=== PATIENT | male | born 1950 ===

== ENCOUNTER 2017-05-06 13:19 | Inpatient (IN) | payer MEDICARE ==
[2017-05-06 13:20] VITALS: BMI 25.7
[2017-05-06] MEDS ORDERED: Sodium Chloride 0.9% 1,000 ML IV STA (13:30)
[2017-05-06] MEDS ORDERED: Morphine 4 mg/ml ISec IVP STA ×2 (13:30→15:26)
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
[2017-05-06] MEDS ORDERED: TDAP Vaccine 0.5 mL Syr IM ONE (13:46)
[2017-05-06 13:55] LABS: BASO # 0.02 K/mm3 (0.0-2.0); BASO % 0.4 % (0.0-3.0); EOS # 0.1 (0.0-0.7); EOS % 1.1 % (1.5-5.0); GRAN # 3.97 (1.4-6.5); GRAN % 69.4 % (50.0-68.0); HEMOGLOBIN 16.7 g/dL (14.0-18.0); LYMPH # 1.3 (1.2-3.4); LYMPH % 23.3 % (22.0-35.0); MEAN CELL VOLUME 96.4 fl (80.0-105.0); MEAN CORPUSCULAR HEMOGLOBIN 35.2 pg (25.0-35.0); MEAN CORPUSCULAR HGB CONC 36.5 g/dl (31.0-37.0); MEAN PLATELET VOLUME 10.3 fl (7.0-11.0); MONO # 0.3 (0.1-0.6); MONO % 5.8 % (1.0-6.0); PLATELET COUNT 141 10^3/uL (120.0-450.0); RBC 4.74 10^6/uL (3.5-6.1); RED CELL DISTRIBUTION WIDTH 13.1 % (11.5-14.5); WHITE BLOOD COUNT 5.7 10^3/ul (4.5-11.0)
[2017-05-06 14:06] LABS: INR 1.1 (0.93-1.08); PARTIAL THROMBOPLASTIN TIME 23.8 Seconds (23.7-30.8); PROTHROMBIN TIME 11.9 Seconds (9.9-11.8)
[2017-05-06 14:07] LABS: ALB/GLOB RATIO 1.7 (1.1-1.8); ALBUMIN 4.6 g/dL (3.0-4.8); ALT/SGPT 199 U/L (7-56); AST/SGOT 251 U/L (15-59); BLOOD UREA NITROGEN 18 mg/dL (7-21); CALCIUM 9.8 mg/dL (8.4-10.5); GFR AFRICAN-AMERICAN > 60; GFR NON-AFRICAN AMERICAN > 60
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
[2017-05-06] MEDS: Morphine 2 mg/ml ISec IVP PRN ×2 (18:18→23:07)
[2017-05-06] MEDS ORDERED: Potassium Chloride 20 mEq ER Tab PO ONE (19:00)
[2017-05-06] MEDS: Sodium Chloride 0.9% 1,000 ML IV SCH (20:29)
[2017-05-06 21:52] LABS: BLOOD UREA NITROGEN 16 mg/dL (7-21); CALCIUM 9.5 mg/dL (8.4-10.5); GFR AFRICAN-AMERICAN > 60; GFR NON-AFRICAN AMERICAN > 60
[2017-05-06 22:05] LABS: TROPONIN I 0.03 ng/mL
[2017-05-06] MEDS ORDERED: Pneumococcal 23-Valent Vaccine IM ONE (23:43)
[2017-05-07] LABS: URINE BILIRUBIN NEGATIVE (NEGATIVE); URINE BLOOD TRACE-INTACT (NEGATIVE); URINE GLUCOSE (UA) NEGATIVE (NEGATIVE); URINE LEUKOCYTE ESTERASE NEGATIVE Leu/uL (NEGATIVE); URINE NITRATE NEGATIVE (NEGATIVE); URINE PROTEIN TRACE mg/dL (<30 mg/dL); URINE UROBILINOGEN 0.2 E.U./dL (<1 E.U./dL)
[2017-05-07 00:18] LABS: URINE APPEARANCE CLEAR (CLEAR); URINE COLOR YELLOW (YELLOW)
[2017-05-07 00:30] LABS: URINE EPITHELIAL CELLS 0 - 2 /hpf (0-5); URINE WBC 0 - 2 /hpf (0-6)
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
[2017-05-07] MEDS: Morphine 2 mg/ml ISec IVP PRN ×4 (05:07→20:02)
[2017-05-07] MEDS: Pantoprazole 40 mg EC Tab PO SCH ×2 (05:35→16:33)
--- NOTE | 2017-05-07 08:07 | US ---
HISTORY: transaminitis COMPARISON: None. TECHNIQUE: Sonographic evaluation of the abdomen. FINDINGS: LIVER: Measures 19.6 cm. Diffusely increased echogenicity of the liver parenchyma. Consistent with fatty infiltration. No mass. Smooth contour. No biliary ductal dilatation. GALLBLADDER: Unremarkable. No gallstones. COMMON BILE DUCT: Measures 6 mm. No stones. No dilatation. PANCREAS: Unremarkable as visualized. No mass. No ductal dilatation. RIGHT KIDNEY: Measures 11.5cm. Normal echogenicity. No calculus, mass, or hydronephrosis. LEFT KIDNEY: Measures 12.1cm. Normal echogenicity. No calculus, mass, or hydronephrosis. SPLEEN: Normal in size and contour. No mass. AORTA: No aneurysmal dilatation. IVC: Unremarkable. OTHER FINDINGS: None. IMPRESSION: Mild hepatomegaly with diffuse fatty infiltration. No evidence of cholelithiasis. Otherwise unremarkable examination.
[2017-05-07 09:15] LABS: BASO # 0.01 K/mm3 (0.0-2.0); BASO % 0.2 % (0.0-3.0); EOS # 0.1 (0.0-0.7); EOS % 0.8 % (1.5-5.0); GRAN # 4.51 (1.4-6.5); HEMOGLOBIN 15.3 g/dL (14.0-18.0); LYMPH # 1.1 (1.2-3.4); LYMPH % 18.5 % (22.0-35.0); MEAN CELL VOLUME 97.5 fl (80.0-105.0); MEAN CORPUSCULAR HEMOGLOBIN 34.7 pg (25.0-35.0); MEAN CORPUSCULAR HGB CONC 35.6 g/dl (31.0-37.0); MEAN PLATELET VOLUME 10.4 fl (7.0-11.0); MONO # 0.3 (0.1-0.6); MONO % 5.5 % (1.0-6.0); PLATELET COUNT 114 10^3/uL (120.0-450.0); RBC 4.41 10^6/uL (3.5-6.1); RED CELL DISTRIBUTION WIDTH 13.2 % (11.5-14.5)
[2017-05-07] MEDS: Multivitamin Vitamin B Complex (Nephro-Vite) Tab PO SCH (09:27)
[2017-05-07] MEDS: Digoxin 250 mcg (0.25 mg) Tab PO SCH (09:34)
[2017-05-07 09:39] LABS: ALB/GLOB RATIO 1.4 (1.1-1.8); ALBUMIN 3.9 g/dL (3.0-4.8); ALT/SGPT 135 U/L (7-56); AST/SGOT 107 U/L (15-59); BLOOD UREA NITROGEN 14 mg/dL (7-21); CALCIUM 9.1 mg/dL (8.4-10.5); GFR AFRICAN-AMERICAN > 60; GFR NON-AFRICAN AMERICAN > 60; HDL CHOLESTEROL 30 mg/dL (29-60); LDL CHOLESTEROL 64 mg/dL (0-129); MAGNESIUM 1.2 mg/dL (1.7-2.2)
[2017-05-07] MEDS ORDERED: Magnesium Sulfate 2 GM in Sodium Chloride 0.9% 100 ML IVPB ONE (10:20)
[2017-05-07 10:52] LABS: TROPONIN I 0.03 ng/mL
--- NOTE | 2017-05-07 11:37 | CARD ---
APPROVED REPORT EKG Measurement Heart [id number] <Conclusion> Atrial fibrillation with slow ventricular response with a competing junctional pacemaker Minimal voltage criteria for LVH, may be normal variant Inferior infarct, possibly Old Poor R Progression V1-V4. ST_T Changes.
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
[2017-05-07 13:19] LABS: BARBITURATES, UR NEGATIVE (NEGATIVE); BENZODIAZEPINES, UR NEGATIVE (NEGATIVE); OPIATES, UR POSITIVE (NEGATIVE); PHENCYCLIDINE, UR NEGATIVE (NEGATIVE)
[2017-05-07 14:47] LABS: BLOOD UREA NITROGEN 14 mg/dL (7-21); CALCIUM 8.9 mg/dL (8.4-10.5); GFR AFRICAN-AMERICAN > 60; GFR NON-AFRICAN AMERICAN > 60
[2017-05-07] MEDS ORDERED: Potassium Chloride 20 mEq ER Tab PO ONE ×2 (15:05→18:00)
[2017-05-07 15:18] LABS: TROPONIN I 0.02 ng/mL
[2017-05-07 16:10] VITALS: RESP 20
--- NOTE | 2017-05-07 17:23 | CARD ---
APPROVED REPORT EXAM: Two-dimensional and M-mode echocardiogram with Doppler and color Doppler. INDICATION Cardiac Disease: CAD 2D DIMENSIONS Left Atrium (2D)4.6 (1.6-4.0cm)IVSd1.5 (0.7-1.1cm) LVDd5.9 (3.9-5.9cm)PWd1.0 (0.7-1.1cm) LVDs5.1 (2.5-4.0cm)FS (%) 13.5 % LVEF (%)28.2 (>50%) M-Mode DIMENSIONS Aortic Root4.00 (2.2-3.7cm)Aortic Cusp Exc.1.80 (1.5-2.0cm) Aortic Valve AoV Peak Kimaemsj953.0cm/Christina Peak GR.9mmHgAI P 1/2 [id number] Mitral Valve E/A ratio0.0 TDI E/Lateral E'0.0E/Medial E'0.0 Tricuspid Valve TR Peak [id number] [id number] Peak Gr.15mmHg [id number] LEFT VENTRICLE The Left Ventricle is mildly dilated. There is mild concentric left ventricular hypertrophy. The systolic function is moderately impaired.EF-30% There is moderate to severe hypokinesis in the mid-inferoseptal wall. Transmitral Doppler flow pattern is Grade II-pseudonormal filling dynamics. No left ventricle thrombus noted on this study. There is no ventricular septal defect visualized. There is no left ventricular aneurysm. There is no mass noted in the left ventricle. RIGHT VENTRICLE The right ventricle is normal size. There is normal right ventricular wall thickness. The right ventricular systolic function is normal. ATRIA The left atrium is mildly dilated. The right atrium is borderline dilated. The interatrial septum is intact with no evidence for an atrial septal defect. AORTIC VALVE The aortic valve is moderately thickened. The aortic valve is moderately sclerotic. There is mild to moderate aortic regurgitation. There is mild valvular aortic stenosis vs aortic sclerosis There is no aortic valvular vegetation. MITRAL VALVE The mitral valve is thickened but opens well. Mitral regurgitation is mild. There is no mitral valve stenosis. There is no evidence of mitral valve prolapse. TRICUSPID VALVE The tricuspid valve leaflets are thickened , but open well. There is mild tricuspid regurgitation.RVSP-25 mmof hg. There is no tricuspid valve stenosis. There is no tricuspid valve prolapse or vegetation. PULMONIC VALVE The pulmonic valve is borderline thickened. There is trace to mild pulmonic valvular regurgitation. There is no pulmonic valvular stenosis. GREAT VESSELS The aortic root is normal in size. The ascending aorta is normal in size. The pulmonary artery is normal. The IVC is normal in size and collapses >50% with inspiration. PERICARDIAL EFFUSION There is no pleural effusion. There is no pericardial effusion. <Conclusion> The Left Ventricle is mildly dilated. There is mild concentric left ventricular hypertrophy. The systolic function is moderately impaired.EF-30% There is mild to moderate aortic regurgitation. There is mild valvular aortic stenosis vs aortic sclerosis Mitral regurgitation is mild. There is mild tricuspid regurgitation.RVSP-25 mmof hg. The IVC is normal in size and collapses >50% with inspiration. There is no pericardial effusion.
[2017-05-07] MEDS: Sodium Chloride 0.9% 1,000 ML IV SCH (20:02)
[2017-05-08] MEDS: Morphine 2 mg/ml ISec IVP PRN ×2 (02:19→06:22)
[2017-05-08] MEDS: Pantoprazole 40 mg EC Tab PO SCH (05:43)
[2017-05-08 06:37] LABS: BASO # 0.01 K/mm3 (0.0-2.0); BASO % 0.2 % (0.0-3.0); EOS # 0.1 (0.0-0.7); EOS % 1.4 % (1.5-5.0); GRAN % 69.9 % (50.0-68.0); HEMOGLOBIN 14.6 g/dL (14.0-18.0); LYMPH # 1.2 (1.2-3.4); LYMPH % 20.6 % (22.0-35.0); MEAN CELL VOLUME 98.4 fl (80.0-105.0); MEAN CORPUSCULAR HGB CONC 34.6 g/dl (31.0-37.0); MEAN PLATELET VOLUME 10.6 fl (7.0-11.0); MONO # 0.4 (0.1-0.6); MONO % 7.9 % (1.0-6.0); PLATELET COUNT 106 10^3/uL (120.0-450.0); RBC 4.29 10^6/uL (3.5-6.1); RED CELL DISTRIBUTION WIDTH 13.5 % (11.5-14.5); WHITE BLOOD COUNT 5.6 10^3/ul (4.5-11.0)
[2017-05-08 06:54] LABS: ALB/GLOB RATIO 1.4 (1.1-1.8); ALBUMIN 3.8 g/dL (3.0-4.8); ALT/SGPT 95 U/L (7-56); AST/SGOT 60 U/L (15-59); BLOOD UREA NITROGEN 14 mg/dL (7-21); CALCIUM 8.7 mg/dL (8.4-10.5); GFR AFRICAN-AMERICAN > 60; GFR NON-AFRICAN AMERICAN > 60; MAGNESIUM 1.6 mg/dL (1.7-2.2)
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
[2017-05-08] MEDS ORDERED: Potassium Chloride 20 mEq ER Tab PO ONE (08:24)
[2017-05-08 08:26] VITALS: BP 140/80; PULSE 53; TEMP 98.3; O2SAT 94
[2017-05-08] MEDS: Magnesium Sulfate 2 GM in Sodium Chloride 0.9% 100 ML IVPB ONE ×2 (09:35→10:12)
[2017-05-08] MEDS: Multivitamin Vitamin B Complex (Nephro-Vite) Tab PO SCH (09:36)
[2017-05-08] MEDS: Digoxin 250 mcg (0.25 mg) Tab PO SCH (09:38)
[2017-05-08 09:40] VITALS: PULSE 54
--- NOTE | 2017-05-08 14:23 | PN ---
DATE: 05/08/2017 REASON FOR CONSULTATION: Status post history of coronary artery disease and history of inferior wall myocardial infarction, and cardiomyopathy, ischemic. SUBJECTIVE: The patient denies any chest pain, shortness of breath or any palpitation. He complained of right lower quadrant pain due to lying flat in the bed. Not in apparent distress. PHYSICAL EXAMINATION: As follows: VITAL SIGNS: Temperature afebrile, heart rate is 45, and blood pressure is 129/85. HEENT: PERRLA. Extraocular muscles are intact. NECK: Supple. No carotid bruits or thyromegaly. CHEST: Clear to auscultation. HEART: S1 and S2 regular. ABDOMEN: Soft. EXTREMITIES: Clubbing and cyanosis negative. LABORATORY DATA: Blood workup as follows: WBC is 5.6, hemoglobin is 14, hematocrit of 42.2, and platelet count of 106. Chemistry shows sodium of 130, potassium of 3.7, chloride of 100, carbon dioxide of 29, anion gap of 13, BUN of 14, and creatinine of 1.0. Random sugar of 112. Calcium of 8.7, phosphorous of 2.8, and magnesium of 1.6. Total protein of 6.5 and albumin of 3.8. IMPRESSION: A 66-year-old male with history of coronary artery disease, status post inferior wall myocardial infarction in the past, cardiomyopathy ischemic, refused automatic implantable cardiovascular defibrillator in the past, admitted after being no evidence of acute NE. The patient had echocardiography done yesterday that showed ejection fraction of 30%, [id number] aortic regurgitation, mild valvular aortic stenosis versus aortic sclerosis, mild mitral regurgitation, mild tricuspid regurgitation, and right ventricular systolic pressure of 25. RECOMMENDATION: Discontinue IV fluid to prevent rhabdomyolysis. Continue Coreg, continue digoxin, and continue atorvastatin. We will get MUGA scan today to assess LV function, okayed to be discharged discussed with the patient, discussed with Dr. Jordan. Thank you Dr. Jordan for providing us the opportunity in taking care of the patient, Kaz. We will follow with you. We will supplement potassium and give a magnesium too. Say Meredith MD cc: Say Meredith MD and Christiano Jordan DO
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
== END 2017-05-08 11:01 | disposition home or self-care (01) | DRG 89 ==
LOC: ED 13:19 → ERH 15:26 → 3RSO 17:37 → OBSVTOIN 05-07 15:38
PROVIDERS: ADMIT Family Medicine; ATTEND Family Medicine
PROC: 3E0234Z Introduction of Serum, Toxoid and Vaccine into Muscle, Percutaneous Approach (ICD-10-PCS; principal; 2017-05-06)
DX: S06.0X9A Concussion with loss of consciousness of unspecified duration, initial encounter (principal); R09.01 Asphyxia; I31.3 Pericardial effusion (noninflammatory); I11.0 Hypertensive heart disease with heart failure; I50.22 Chronic systolic (congestive) heart failure; M62.82 Rhabdomyolysis; S20.319A Abrasion of unspecified front wall of thorax, initial encounter; Y04.0XXA Assault by unarmed brawl or fight, initial encounter; I08.3 Combined rheumatic disorders of mitral, aortic and tricuspid valves; E78.5 Hyperlipidemia, unspecified; F12.90 Cannabis use, unspecified, uncomplicated; Z72.89 Other problems related to lifestyle; F17.210 Nicotine dependence, cigarettes, uncomplicated; I48.91 Unspecified atrial fibrillation; I25.10 Atherosclerotic heart disease of native coronary artery without angina pectoris; I25.2 Old myocardial infarction; I25.5 Ischemic cardiomyopathy; M19.012 Primary osteoarthritis, left shoulder; M19.011 Primary osteoarthritis, right shoulder; M47.814 Spondylosis without myelopathy or radiculopathy, thoracic region; N40.0 Benign prostatic hyperplasia without lower urinary tract symptoms; Z95.5 Presence of coronary angioplasty implant and graft; Z79.82 Long term (current) use of aspirin; Y92.002 Bathroom of unspecified non-institutional (private) residence as the place of occurrence of the external cause; R40.2412 Glasgow coma scale score 13-15, at arrival to emergency department; S00.83XA Contusion of other part of head, initial encounter; S90.512A Abrasion, left ankle, initial encounter; S90.511A Abrasion, right ankle, initial encounter; S40.022A Contusion of left upper arm, initial encounter; S40.021A Contusion of right upper arm, initial encounter; S10.83XA Contusion of other specified part of neck, initial encounter; S20.229A Contusion of unspecified back wall of thorax, initial encounter; Z23 Encounter for immunization

== ENCOUNTER 2018-12-23 15:41 | Inpatient (IN) | payer MEDICARE ==
[2018-12-23 15:54] VITALS: BMI 24.3
[2018-12-23 16:40] LABS: HEMOGLOBIN 14.8 g/dL (14.0-18.0); MEAN CELL VOLUME 101.9 fl (80.0-105.0); MEAN CORPUSCULAR HEMOGLOBIN 34.3 pg (25.0-35.0); MEAN CORPUSCULAR HGB CONC 33.6 g/dl (31.0-37.0); MEAN PLATELET VOLUME 11.1 fl (7.0-11.0); RBC 4.32 10^6/uL (3.5-6.1); RED CELL DISTRIBUTION WIDTH 14.5 % (11.5-14.5); WHITE BLOOD COUNT 4.8 10^3/uL (4.5-11.0)
[2018-12-23 16:53] LABS: ALB/GLOB RATIO 1.1 (1.1-1.8); ALBUMIN 4.4 g/dL (3.0-4.8); ALT/SGPT 30 U/L (7-56); AST/SGOT 48 U/L (17-59); BLOOD UREA NITROGEN 18 mg/dL (7-21); CALCIUM 10.1 mg/dL (8.4-10.5); GFR NON-AFRICAN AMERICAN 55
--- NOTE | 2018-12-23 16:56 | ED PDOC ---
Arrival/HPI - General Chief Complaint: Syncope Time Seen by Provider: 12/23/18 15:49 Historian: Patient - History of Present Illness Narrative History of Present Illness (Text): 12/23/18 15:49 Loc Mccurdy is a 68 year old male, with a past medical history of hypertension, hyperlipidemia, diabetes, CAD s/p stents x 4, PA x 3, defibrillator (July 2018), and a-fib on coumadin and digoxin, who presents to the emergency department complaining of right cheek pain s/p syncopal episode and fall at 1:30 PM earlier today. Patient informs of washing dishes prior to losing consciousness. Patient notes falling to the floor hitting his cheek. Patient also notes "fluttering" sensation in chest prior to loss of consciousness. Patient's pacemaker device sales representative trainee called a nurse; nurse called patient and advised him to visit the emergency department. Patient informs taking warfarin and digoxin today. Patient denies previous history of syncopal episodes. No vision changes or difficulties. No wrist, elbow, back, or neck pain. No chest pain, shortness of breath. No abdominal pain, nausea, vomiting, diarrhea. No bowel or urinary incontinence. No fevers, chills, or night sweats. No other injuries. No other complaints. PMD: Dr. Jordan 04 Time/Duration: 1-3 hours (1:30 PM ) Symptom Onset: Sudden Symptom Course: Resolved Activities at Onset: Light Context: Home Past Medical History - Provider Review Nursing Documentation Reviewed: Yes - Infectious Disease Hx of Infectious Diseases: None - Tetanus Immunization Tetanus Immunization: Unknown - Cardiac Hx Cardiac Disorders: Yes (mi 2 in 1 day 09/16/2010) Hx Cardiac Arrhythmia: Yes (afib) Hx Heart Murmur: Yes (x4 last stent 2009) Hx Hypertension: Yes Other/Comment: L sided pacemaker/defib -- july 2018 - Pulmonary Hx Respiratory Disorders: No - Neurological Hx Paralysis: No - HEENT Hx HEENT Disorder: Yes (glasses) - Renal Hx Renal Disorder: No - Endocrine/Metabolic Hx Diabetes Mellitus Type 2: (borderline) - Hematological/Oncological Hx Blood Disorders: No - Integumentary Other/Comment: bruising to left rastafarian swelling left eye, r inner ankle abrasion, left outer ankle abrasion, bruising and swelling to front back and around neck, small scratch left shoulder, red bruising to face and bruises and abrasions to both arms, lump to back of head, 3 abrasions to top of head, slight redness upper back - Musculoskeletal/Rheumatological Hx Falls: No - Gastrointestinal Hx Gastrointestinal Disorders: No - Genitourinary/Gynecological Hx Prostate Problems: Yes (enlarged prostate) - Psychiatric Hx Psychophysiologic Disorder: No Hx Depression: No Hx Emotional Abuse: No Hx Physical Abuse: No Hx Substance Use: No Other/Comment: drinks 3 or 4 of small airport size bottles of vodka daily - Past Surgical History Past Surgical History: No Previous - Surgical History Hx Coronary Stent: Yes Other/Comment: L sided pacemaker - Anesthesia Hx Anesthesia: Yes Hx Anesthesia Reactions: No Hx Malignant Hyperthermia: No - Suicidal Assessment Feels Threatened In Home Enviroment: No Family/Social History - Physician Review Nursing Documentation Reviewed: Yes Family/Social History: Unknown Family HX Smoking Status: Heavy Smoker > 10 Cigarettes Daily Hx Alcohol Use: Yes (daily vodka 3/4 small airport bottles) Hx Substance Use: No Hx Substance Use Treatment: No Allergies/Home Meds Allergies/Adverse Reactions: Allergies No Known Allergies Allergy (Verified 12/23/18 15:54) Home Medications: Home Meds Medication Instructions Recorded Confirmed Carvedilol [Coreg] 25 mg PO BID 05/06/17 12/23/18 Lisinopril [Zestril] 30 mg PO DAILY 05/06/17 12/23/18 Simvastatin 40 mg PO QOTHERDAY 05/06/17 12/23/18 Vitamin B Complex [Super Quints] 1 each PO DAILY 05/06/17 12/23/18 ALPRAZolam [Xanax] 0.5 mg PO PRN PRN 12/23/18 12/23/18 Amiodarone [Cordarone] 200 mg PO BID 12/23/18 12/23/18 Digoxin [Digitek] 125 mcg PO 12/23/18 Furosemide [Lasix] 40 mg PO BID 12/23/18 12/23/18 Potassium 20 20 meq PO BID 12/23/18 12/23/18 Vitamin E 180 unit PO DAILY 12/23/18 12/23/18 Warfarin [Coumadin] 1 mg PO DAILY 12/23/18 12/23/18 Review of Systems - Physician Review All systems were reviewed & negative as marked: Yes - Review of Systems Constitutional: absent: Fatigue, Fevers, Night Sweats, Other (chills) Eyes: absent: Vision Changes, Eye Pain ENT: absent: Hearing Changes Respiratory: absent: SOB, Cough, Sputum Cardiovascular: Syncope (1:30 PM). absent: Chest Pain, Palpitations, Edema, Calf Pain, BENSON Gastrointestinal: absent: Abdominal Pain, Stool Changes, Constipation, Diarrhea, Nausea, Vomiting, Appetite Changes, Hematochezia, Hematemesis, Anorexia, Other (bowel incontinence) Genitourinary Male: absent: Dysuria, Frequency, Hematuria, Urinary Output Changes, Other (urinary incontinence) Musculoskeletal: Other (right cheek pain). absent: Arthralgias (No wrist or elbow pain ), Back Pain, Neck Pain Skin: absent: Rash, Pruritis Neurological: absent: Headache, Dizziness Physical Exam Vital Signs Reviewed: Yes Vital Signs Temp Pulse Resp BP Pulse Ox 12/23/18 15:58 97.2 F L 60 18 154/95 H 96 Temperature: Afebrile Blood Pressure: Normal Pulse: Regular Respiratory Rate: Normal Appearance: Positive for: Well-Appearing, Non-Toxic, Comfortable Pain Distress: None Mental Status: Positive for: Alert and Oriented X 3 - Systems Exam Head: Present: Normocephalic, Tenderness (point tenderness to right cheek) Pupils: Present: PERRL Extroacular Muscles: Present: EOMI (no pain with extraocular motion). No: Gaze Palsy, Entrapment, Other Conjunctiva: Present: Normal Ears: Present: Normal, NORMAL TM, Normal Canal. No: Erythema, TM Bulging Mouth: Present: Moist Mucous Membranes, Normal Lips, Normal Teeth. No: Drooling, Trismus Pharnyx: Present: Normal. No: ERYTHEMA, EXUDATE, TONSILS ENLARGED Nose (External): Present: Atraumatic. No: Abrasion, Contusion Nose (Internal): Present: Normal Inspection, No Active Bleeding, Moist. No: Septal Hematoma Neck: Present: Normal Range of Motion, Trachea Midline. No: Meningeal Signs, MIDLINE TENDERNESS, Paraspinal Tenderness, JVD, Lymphadenopathy Respiratory/Chest: Present: Clear to Auscultation, Good Air Exchange. No: Respiratory Distress, Accessory Muscle Use, Wheezes, Rales, Rhonchi Cardiovascular: Present: Regular Rate and Rhythm, Normal S1, S2. No: Murmurs, Rub, Gallop Abdomen: Present: Normal Bowel Sounds. No: Tenderness, Distention, Peritoneal Signs, Rebound, Guarding, McBurney's Point Tender Back: Present: Normal Inspection Upper Extremity: Present: Normal Inspection, Normal ROM, NORMAL PULSES, Neurovascularly Intact, Capillary Refill < 2s, Other (no snuffbox or any extremity pain). No: Cyanosis, Edema, Tenderness, Swelling, Erythema, Deformity Lower Extremity: Present: Normal Inspection, NORMAL PULSES, Neurovascularly Intact, Capillary Refill < 2 s. No: Edema, Swelling Neurological: Present: GCS=15, CN II-XII Intact, Speech Normal, Motor Func Grossly Intact, Normal Sensory Function, Memory Normal Skin: Present: Warm, Dry, Normal Color. No: Rashes Psychiatric: Present: Alert, Oriented x 3, Normal Insight, Normal Concentration Medical Decision Making ED Course and Treatment: 12/23/18 15:49 Patient is a 68 year old male with hyperlipidemia, hypertension, CAD s/p stents x4, PA x 3, pacemaker and defibrillator placement (July 2018), and a-fib, presents to the emergency department complaining of right cheek pain s/p syncopal episode at 1:30 PM earlier today. Patient informs pacemaker device rep. called a nurse who advised patient to visit emergency department. Patient states washing dishes prior to loss of consciousness. Patient notes "fluttering" sensation in his chest prior to losing consciousness. Patient takes warfarin. Patient also takes digoxin. No history of syncopal episodes. No vision changes or difficulties. No wrist, elbow, back, or neck pain. No chest pain, shortness of breath. No abdominal pain, nausea, vomiting, diarrhea. On exam, point tenderness to right cheek. PERRLA, vision normal, EOMI with no associated eye pain. No difficulty with speech or chewing / swallowing. Neurological exam unremarkable. No midline tenderness to neck. Plan: -- Labs -- VBG -- CT C-Spine w/o contrast -- CT Head w/o contrast -- Chest X-Ray 1V -- X-Ray Facial Bone -- EKG -- Reassess and disposition Prior Visits: Notes and results from previous visits were reviewed. Progress Notes: 12/23/18 17:23 troponin wnl BNP elevated. No signs of fluid overload however. lungs remain cta b/l and no b/l LE edema CXR largely unremarkable: pt denies any CP or new shoulder / AC joint pain. No AC joint TTP. N/V intact in b/l UE. No pain in b/l UE. abdomen remains non-ttp midline spine remains non-ttp back exam w/ out any signs of trauma, non-ttp CTH unremarkable CTneck unremarkable appreciate consult w/ Dr. Meredith: we are to admit pt to mike to tele: pt had a round of VT and Defib shocked earlier today. Pt in NAD, agreeable to plan appreciate consult w/ Dr. Jordan: we are to admit to his serviceL: tele 12/23/18 17:58 defibrillator interrogated bedside: one episode of Vtach: endorsed to Dr. Jordan pt in NAD - RAD Interpretation Radiology Orders: 12/23/18 16:13 CERVICAL SPINE W/O CONTRAST [CT] Stat HEAD W/O CONTRAST [CT] Stat CHEST PORTABLE [RAD] Stat FACIAL BONES [RAD] Stat - EKG Interpretation EKG Interpretation (Text): 12/23/18 15:49 Reviewed EKG, shows: Rate : 60 BPM Rhythm : Paced Interpreted by ED Physician: Yes Type: 12 lead EKG - Scribe Statement The provider has reviewed the documentation as recorded by the Scribe Willy Hamilton All medical record entries made by the Scribe were at my direction and personally dictated by me. I have reviewed the chart and agree that the record accurately reflects my personal performance of the history, physical exam, medical decision making, and the department course for this patient. I have also personally directed, reviewed, and agree with the discharge instructions and disposition. Disposition/Present on Arrival - Present on Arrival Any Indicators Present on Arrival: No History of DVT/PE: No History of Uncontrolled Diabetes: No Urinary Catheter: No History of Decub. Ulcer: No History Surgical Site Infection Following: None - Disposition Have Diagnosis and Disposition been Completed?: Yes Diagnosis: Syncope Disposition: HOSPITALIZED Disposition Time: 17:20 Patient Problems: Current Active Problems Problem Status Onset Syncope Acute Condition: STABLE
--- NOTE | 2018-12-23 17:03 | CT ---
Date of service: 12/23/2018 PROCEDURE: CT HEAD WITHOUT CONTRAST. HISTORY: Syncope, fall on AC COMPARISON: 05/06/2017. TECHNIQUE: Axial computed tomography images were obtained through the head/brain without intravenous contrast. Radiation dose: Total exam DLP = 895.04 mGy-cm. This CT exam was performed using one or more of the following dose reduction techniques: Automated exposure control, adjustment of the mA and/or kV according to patient size, and/or use of iterative reconstruction technique. FINDINGS: HEMORRHAGE: No intracranial hemorrhage. BRAIN: Zarco-white matter differentiation is preserved. There is no mass, mass effect or abnormal extra-axial fluid collection. There is no territorial infarction. The midline sagittal structures are normal. VENTRICLES: There is mild age-related global parenchymal volume loss and proportionate enlargement of the ventricles and cortical sulci. CALVARIUM: There is no calvarial fracture or extracranial soft tissue swelling. PARANASAL SINUSES: Predominantly clear. MASTOID AIR CELLS: Predominantly clear. OTHER FINDINGS: None. IMPRESSION: No acute intracranial abnormality.
--- NOTE | 2018-12-23 17:06 | CT ---
Date of service: 12/23/2018 PROCEDURE: CT Cervical Spine without contrast HISTORY: syncope, fall on AC COMPARISON: None available. TECHNIQUE: Axial computed tomography images were obtained of the cervical spine without the use of intravenous contrast. Coronal and sagittal reformatted images were created and reviewed. Radiation dose: Total exam DLP = 504.5 mGy-cm. This CT exam was performed using one or more of the following dose reduction techniques: Automated exposure control, adjustment of the mA and/or kV according to patient size, and/or use of iterative reconstruction technique. FINDINGS: VERTEBRAE: There is normal alignment of the cervical vertebral bodies. There is normal cervical lordosis. There is no acute fracture or traumatic anterior listhesis. The craniocervical junction is normal. The atlantoaxial joint is normal. DISCS/SPINAL CANAL/NEURAL FORAMINA: There is multilevel degenerative disc disease due to combination of disc osteophyte complexes uncovertebral joint hypertrophy and multilevel facet arthropathy, worse at C4-5 with a small central disc protrusion without central spinal canal stenosis. No neural foraminal narrowing. PARASPINAL SOFT TISSUES: The paraspinous soft tissues are normal. OTHER FINDINGS: No prevertebral soft tissue thickening. No apical pneumothorax. IMPRESSION: No acute fracture or traumatic anterior listhesis.
[2018-12-23 17:08] LABS: INR 1.62; PARTIAL THROMBOPLASTIN TIME 34.4 Seconds (26.9-38.3); PROTHROMBIN TIME 18.3 SECONDS (9.4-12.5)
[2018-12-23 17:11] LABS: B-TYPE NATRIURETIC PEPTIDE 1800 pg/mL (0-450); TROPONIN I 0.05 ng/mL
--- NOTE | 2018-12-23 17:20 | RAD ---
HISTORY: syncope, fall on AC COMPARISON: Chest x-ray performed 04/20/18 TECHNIQUE: Chest, one view. FINDINGS: LUNGS: No focal consolidation. Please note that chest x-ray has limited sensitivity for the detection of pulmonary masses. PLEURA: No significant pleural effusion identified. No definite pneumothorax . CARDIOVASCULAR: Left-sided AICD. Cardiomegaly. Ectatic aorta. Atherosclerotic calcification of the aorta OSSEOUS STRUCTURES: Acromioclavicular arthropathy. Degenerative changes of the spine. Apparent degenerative changes versus remote injuries of bilateral AC joints. VISUALIZED UPPER ABDOMEN: Unremarkable. OTHER FINDINGS: None. IMPRESSION: No focal consolidation. Cardiomegaly. Left sided AICD. Acromioclavicular arthropathy. Apparent degenerative changes versus remote injuries. Recommend clinical correlation in order to exclude point tenderness.
--- NOTE | 2018-12-23 17:39 | RAD ---
Facial bones, 4 views Indication: syncope, fall on AC Comparison: None available Findings: Limited visualization of the paranasal sinuses demonstrates no clear evidence of air-fluid level or sinus opacification. The visualized portions of the mastoid air cells appear grossly clear. The nasal septum appears midline. No acute displaced fracture identified. Impression: Limited study. No air-fluid levels or paranasal sinus opacification evident. Suggest further evaluation with cross-sectional imaging if indicated.
--- NOTE | 2018-12-23 19:04 | CARD ---
APPROVED REPORT Date of service: 12/23/2018 EKG Measurement Heart [id number] <Conclusion> Electronic atrial pacemaker with marked first degree AVB Inferior infarct, age undetermined Anterior infarct, age undetermined CCR Abnormal ECG
[2018-12-23] MEDS ORDERED: Amiodarone 150 mg/D5W 100 ml 150 MG/100 ML BAG IVPB ONE (19:59)
[2018-12-23] MEDS ORDERED: Potassium Chloride 20 mEq ER Tab PO STA (20:29)
[2018-12-23] MEDS ORDERED: Magnesium Sulfate 2 gm/50 ml 2 GM/50 ML BAG IVPB ONE (20:30)
[2018-12-23] MEDS ORDERED: Enoxaparin 100 mg Syringe SC STA (20:30)
--- NOTE | 2018-12-23 23:56 | HP ---
DATE OF EXAM: 12/23/2018 HISTORY OF PRESENT ILLNESS: I have known him for many years. He is a nice man. He is a 68-year-old white male who presents with being found on the floor, he woke up on the floor, he passed out. He remembers seeing the clock at 1:25 and the next time when he did see the clock it was 1:30. He remembers his right cheek and the face was hurting him when he woke up and was staring up at a drawer. He remembers being at the sink washing dishes, the next thing you know he was on the floor. He thinks he hit his head. He felt a fluttering across his chest before he lost consciousness. There was also a call from the [facility] people that the defibrillator fired, he must have been in V-tach. He is on warfarin, digoxin, and he was told to come to the emergency room. PAST MEDICAL HISTORY: He has a past medical history of hypertension, high cholesterol, diabetes, coronary artery disease, CT, and pacemaker defibrillator. He has had cardiac stents placed with a sudden change. He has a right cheek hit on the face that is sore, he felt that is where he hit his head. He had an CT, two in one day back in 2009. He had atrial fibrillation. He had stents, last one was placed in 10/2009, hypertension, left-sided pacemaker defibrillator in 07/2018, wears glasses, and borderline diabetes. He has bruising to the left yarsani, swelling, left side of right inner ankle abrasion, left side of ankle, left shoulder small scratch, a face bruise, both arms were abrased, lump on the back of the head, few abrasions to the top of the head, slight redness upper back. He has an enlarged prostate. He does drink 3 to 4 small airport sized bottles of vodka daily. There is a left-sided pacemaker defibrillator implanted. FAMILY HISTORY: Unknown family history. SOCIAL HISTORY: Heavy smoker. Daily drinker of 3 out of 4 daily vodka, small airport vodka bottles a day. ALLERGIES: NO KNOWN DRUG ALLERGIES. MEDICATIONS: He is on Ecotrin, Coreg, vitamin D3, Lanoxin, hydrochlorothiazide, Zestril, simvastatin, and amiodarone. REVIEW OF SYSTEMS: He had no fever. No night sweats. Little chills. No acute vision or hearing changes. No shortness of breath. No chest pain. He was syncopal at 1:30. No abdominal pain, nausea, vomiting, constipation, or diarrhea. He has a history of bowel incontinence and urinary incontinence. Right cheek pain from where he hit it when he passed out. No headache or dizziness. PHYSICAL EXAMINATION: VITAL SIGNS: He has a 97.2 temperature, 60 pulse, 18 respiratory rate, 154/95 blood pressure, and 96% O2 sat. GENERAL: He is well-appearing, nontoxic, comfortable at this time. Alert and oriented x3. HEENT: He has a traumatic point to the right cheek of his face. Normocephalic. Extraocular muscles are intact. Pupils are reactive to light. Throat is moist. NECK: Supple. No JVD. Thyroid midline. No palpable appreciable lymphadenopathy. LUNGS: Decreased breath sounds, but clear to auscultation. No wheezes. No rhonchi. No rales. HEART: Regular rate at this time. Normal S1 and S2. ABDOMEN: Soft and nontender. Positive bowel sounds. No guarding. No rebound. No CVA tenderness. EXTREMITIES: Have no edema. NEUROLOGIC: GCS is 15. Cranial nerves II through XII grossly intact. Speech is normal. Alert and oriented x3. SKIN: Warm and dry. Fair turgor. No ulcers appreciated. No rashes appreciable. LABORATORY DATA: He had multiple tests done. Digoxin level is less than 0.4. He has a 139 sodium, potassium 3.2, we will replace the potassium. BUN 83, creatinine 1.3, GFR is 55, sugar is 162, calcium is 9.1, magnesium 1.6, and total bili is 2.6. AST is 48, ALT is 30, and alk phos is 240. Troponin I is 0.05. BNP is high at 1800. Total protein is 8.4 and albumin is 4.4. He has a 1.62 INR. White count 4.8, hemoglobin 14.8, hematocrit 44 with 95 platelets, a little low. CAT scan of the head, facial bones, chest x-ray and cervical spine were all fine. ASSESSMENT AND PLAN: He is here for ventricular fibrillation with a firing of his automatic implantable cardioverter-defibrillator. He will have consults with Dr. Meredith, the healthcare advisory services manager. He will be put back on his medications. We will watch him on telemetry and hopefully he will do very well. Loc Mccurdy, who had a ventricular fibrillation syncope. Christiano Jordan DO
[2018-12-23] MEDS ORDERED: Pneumococcal 23-Valent Vaccine IM ONE (23:57)
[2018-12-23] MEDS ORDERED: Influenza Vaccine 60 mcg/0.5 mL SYR (4YR UP) IM ONE (23:57)
--- NOTE | 2018-12-24 03:37 | CON ---
DATE: 12/23/2018 CONSULT SERVICE: Cardiology. REASON FOR CONSULTATION: Status post ventricular fibrillation, status post defibrillator went off, status post syncope. BRIEF CLINICAL HISTORY: This is a 68-year-old male with past medical history significant for coronary artery disease, status post FL, status post stent, recently defibrillator placed in 2018, the patient was refusing earlier, history of AFib, on Coumadin who said that on 01:30 p.m. washing the dishes, suddenly he felt the funny sensation in the chest, heart is fluttering, and then he passed out and found himself on the floor for 3 to 4 minutes. After that when he woke up, he found himself on the floor. The patient with remote monitoring from the defibrillator from [employer] that shows the patient had a V-fib; so the patient was called to come to the ER. The patient states that he has to get somebody to take care of the dog, so ultimately he came in. On arrival to the ER, the pacemaker defibrillator was interrogated by [employer], found to be one V-fib shocked, and shock delivered via first antitachycardic device and then shock was delivered, the patient converted to normal sinus, normal functioning pacemaker defibrillator, optimal level is normal. This means the patient is not in congestive heart failure. PAST MEDICAL HISTORY: Significant for coronary artery disease, hypertension, hyperlipidemia, cardiomyopathy ischemic, status post multiple stent. PREVIOUS CARDIAC WORKUP FOLLOWS: The patient had the last echocardiography done on 05/07/2017, the patient's last echo in , ejection fraction 30%, [id number] aortic regurgitation, mild aortic stenosis with aortic sclerosis, mild mitral regurgitation, mild tricuspid regurgitation, and RV systolic pressure of 25. Ejection fraction reported 30% dated 05/07/2017. The patient has a last MUGA scan done on 05/27/2018 that shows ejection fraction 32% dated 05/27/2018, this is the most recent MUGA scan. History of FL in 2009, status post primary angioplasty of right coronary artery. History of repeat catheterization on 03/21/2013 that shows patent stent in proximal RCA, moderate disease, ejection fraction 30% to 35%. SOCIAL HISTORY: The patient used to smoke, claims that he stopped smoking. Used to drink alcohol, but states he cut down the drinking as well. CURRENT MEDICATIONS: The patient is taking lisinopril, carvedilol, simvastatin, amiodarone, Xanax, Coumadin, digoxin. The patient is in AFib since last over a year and on Coumadin. ALLERGIES: NO KNOWN DRUG ALLERGIES. REVIEW OF SYSTEMS: As per HPI. PHYSICAL EXAMINATION: VITAL SIGNS: Height of the patient 6 feet 2 inches, weight of the patient 190 pounds, and body mass index 24.4 kg/m2. Temperature afebrile, heart rate 95, and blood pressure 154/88. HEENT: PERRLA. Extraocular muscles intact. NECK: Supple. No carotid bruit or thyromegaly. CHEST: Clear to auscultation. HEART: S1 and S2 regular. ABDOMEN: Soft. EXTREMITIES: Clubbing and cyanosis negative. LABORATORY DATA: WBC 4.8, hemoglobin 14.8, hematocrit 44, and platelet count 95. Chemistry shows sodium 139, potassium 3.2, chloride 97, carbon dioxide 29, anion gap 16, BUN 18, and creatinine 1.3. BNP 1800 and troponin 0.05. INR 1.62. EKG shows normal sinus now. Chest x-ray; no focal consolidation noted. No significant finding of acute CHF noted. IMPRESSION: A 68-year-old male with past medical history significant for coronary artery disease, status post myocardial infarction in 2009, status post primary angioplasty, status post repeat catheterization in 2012, no significant disease. The patient was proposed multiple times for defibrillator, recently the patient got a defibrillator in 2018. Recent echo in 2017, with ejection fraction of 30% to 35% who had a syncopal episode secondary to ventricular fibrillation and the pacemaker defibrillator went off and the first antitachycardia pacing device, but in-house shock delivered, the patient converted to normal sinus. The patient was advised to come to the emergency room. The patient has a history of paroxysmal atrial fibrillation since the patient has a defibrillator, on Coumadin. RECOMMENDATIONS: We will start to resume previous medication. We will load with IV amiodarone 150 mg and then 400 mg p.o. t.i.d. for four doses followed by 200 mg p.o. b.i.d. If he remains stable, we will discharge. We will get the lipid profile, TSH, hemoglobin A1c, and also get the echo to assess LV function. Discussed with the patient. Since the patient has subtherapeutic INR, we will give 2 mg of Coumadin tonight and then 1 mg from tomorrow. We will also given because of the AFib shock delivered, we will give one dose of Lovenox as well and supplement the potassium and as magnesium is low, we will supplement magnesium and potassium as well. We will follow with you. Thank you Dr. Jordan for providing us the opportunity in taking care of the patient, Loc Mccurdy. Say Meredith MD
[2018-12-24 06:32] LABS: HEMOGLOBIN 14.4 g/dL (14.0-18.0); MEAN CELL VOLUME 103.2 fl (80.0-105.0); MEAN CORPUSCULAR HEMOGLOBIN 35.3 pg (25.0-35.0); MEAN CORPUSCULAR HGB CONC 34.2 g/dl (31.0-37.0); MEAN PLATELET VOLUME 11.2 fl (7.0-11.0); RBC 4.08 10^6/uL (3.5-6.1); RED CELL DISTRIBUTION WIDTH 14.8 % (11.5-14.5); WHITE BLOOD COUNT 4.4 10^3/uL (4.5-11.0)
[2018-12-24 06:34] LABS: INR 1.52; PROTHROMBIN TIME 17.2 SECONDS (9.4-12.5)
[2018-12-24 06:58] LABS: ALB/GLOB RATIO 1.2 (1.1-1.8); ALBUMIN 4.4 g/dL (3.0-4.8); ALT/SGPT 36 U/L (7-56); AST/SGOT 40 U/L (17-59); BLOOD UREA NITROGEN 18 mg/dL (7-21); GFR NON-AFRICAN AMERICAN 51; HDL CHOLESTEROL 31 mg/dL (29-60)
[2018-12-24 07:08] LABS: LDL CHOLESTEROL 94 mg/dL (0-129)
[2018-12-24 08:03] VITALS: O2SAT 94
[2018-12-24 09:50] VITALS: PULSE 60
[2018-12-24] MEDS ORDERED: Enoxaparin 100 mg Syringe SC ONE (10:00)
[2018-12-24] MEDS ORDERED: Potassium Chloride 20 mEq ER Tab PO SCH (10:00)
[2018-12-24] MEDS ORDERED: Magnesium Oxide 400 mg Tab UD PO SCH (10:00)
[2018-12-24] MEDS ORDERED: Digoxin 125 mcg (0.125 mg) Tab PO SCH (10:00)
[2018-12-24 12:05] VITALS: RESP 18; TEMP 97.5
--- NOTE | 2018-12-24 12:16 | PN ---
DATE: 12/24/2018 REASON FOR CONSULTATION: Followup cardiac evaluation status post V-Fib, status post defibrillator went off, status post syncope (fell down). SUBJECTIVE: The patient denies any chest pain, shortness of breath, or any palpitation. OBJECTIVE: GENERAL: Not in apparent distress. Does not feel any palpitation. VITAL SIGNS: Temperature afebrile, heart rate 60, blood pressure 148/ . HEENT: PERRLA. Extraocular muscles intact. NECK: Supple. No carotid bruit. No thyromegaly. CHEST: Clear to auscultation. HEART: S1, S2. Regular. ABDOMEN: Soft. EXTREMITIES: Clubbing, cyanosis negative. LABORATORY DATA: Blood workup as follows: WBC 4.4, hemoglobin 14.4, hematocrit 42.1, platelet count 96. Chemistry shows sodium 140, potassium 3.6, chloride 97, carbon dioxide 34, anion gap of 13, BUN 18, creatinine 1.4. TSH 3.38, albumin 4.4, total protein 7.9, globulin 3.6, albumin globulin ratio 1.2. Triglycerides 137, cholesterol 145, LDL 94, HDL 41. Today, magnesium 1.9, phosphorus 3.6. IMPRESSION: A 68-year-old male with past medical history significant for coronary artery disease, status post myocardial infarction in the past, history of primary angioplasty after inferior wall myocardial infarction in 2009, followup repeat catheterization in 2012, no significant disease. The patient has known history of ischemic cardiomyopathy, who keeps on deferring automatic implantable cardioverter-defibrillator implantation. Ultimately, the patient had implantation of automatic implantable cardioverter-defibrillator done in 07/2018. The patient was found to be in atrial fibrillation, on Coumadin. Yesterday, the patient was washing the dishes, suddenly he felt fluttering sensation in the heart and then appropriate shock delivered. The patient fell down on the floor, advised to come here. Interrogation of the automatic implantable cardioverter-defibrillator was done. It was ventricular tachycardia, ventricular fibrillation and appropriate shock delivered, first antitachycardia device, pacing was done but it did not break the ventricular tachycardia, after shock delivered and converted to normal sinus. Yesterday, the patient was found to be hypomagnesemic, hypokalemic as well. History of paroxysmal atrial fibrillation, that is why the patient is on Coumadin; after the shock delivered, it was converted to normal sinus. RECOMMENDATIONS: Electrolyte was supplemented and the patient has subtherapeutic international normalized ratio, so Lovenox was given. Coumadin was increased to 2 mg yesterday, we will give another 2 mg today. We will give one dose of Lovenox as well to cover the subtherapeutic dose. Start loading with amiodarone, continue 400 mg p.o. t.i.d. for today and then 200 mg from tomorrow. Continue Coreg. Continue lisinopril. We will start p.o. magnesium and supplement potassium as well. If he remains stable, possible discharge. We will continue Coumadin at 1 mg from tomorrow, give 2 mg today and then switch 1 mg from tomorrow. We will give one dose of Lovenox as well. Thank you Dr. Jordan for providing us the opportunity in taking care of the patient, Loc Kaz. Say Meredith MD
[2018-12-24 13:45] VITALS: BP 142/86; PULSE 60
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
--- NOTE | 2018-12-24 17:50 | CARD ---
APPROVED REPORT Date of service: 12/24/2018 EXAM: Two-dimensional and M-mode echocardiogram with Doppler and color Doppler. INDICATION Cardiac Disease: CAD V-FIB 2D DIMENSIONS Left Atrium (2D)5.0 (1.6-4.0cm)IVSd1.7 (0.7-1.1cm) LVDd5.4 (3.9-5.9cm)PWd1.5 (0.7-1.1cm) LVDs4.9 (2.5-4.0cm)FS (%) 9.4 % LVEF (%)20.3 (>50%) M-Mode DIMENSIONS Aortic Root3.60 (2.2-3.7cm)Aortic Cusp Exc.1.90 (1.5-2.0cm) Aortic Valve AoV Peak Tjuhanso524.0cm/Christina Peak GR.7mmHgAI P 1/2 Pyon014ar Mitral Valve E/A ratio0.0 TDI E/Lateral E'0.0E/Medial E'0.0 Tricuspid Valve TR Peak [id number]/sRAP [id number] Peak Gr.18mmHg [id number] LEFT VENTRICLE The left ventricle is normal size. There is mild to moderate concentric left ventricular hypertrophy. The systolic function is severely impaired.EF-20-25% There is moderate to severe global hypokinesis of the left ventricle. Transmitral Doppler flow pattern is Grade II-pseudonormal filling dynamics. No left ventricle thrombus noted on this study. There is no ventricular septal defect visualized. There is no left ventricular aneurysm. There is no mass noted in the left ventricle. RIGHT VENTRICLE The right ventricle is mildly dilated. There is normal right ventricular wall thickness. Systolic function is moderately reduced. There is a pacemaker lead in the right ventricle. ATRIA The left atrium is mildly dilated. The right atrium is mildly dilated. There is a catheter/pacemaker lead seen in the right atrium. The interatrial septum is intact with no evidence for an atrial septal defect. AORTIC VALVE The aortic valve is thickened but opens well. There is mild to moderate aortic regurgitation. There is no aortic valvular stenosis. There is no aortic valvular vegetation. MITRAL VALVE The mitral valve is thickened but opens well. Mitral regurgitation is mild. There is no mitral valve stenosis. There is no evidence of mitral valve prolapse. TRICUSPID VALVE The tricuspid valve leaflets are thickened , but open well. There is mild to moderate tricuspid regurgitation.RVSP-28 mmof Hg. There is no tricuspid valve stenosis. There is no tricuspid valve prolapse or vegetation. PULMONIC VALVE The pulmonary valve is normal in structure. There is trace pulmonic valvular regurgitation. There is no pulmonic valvular stenosis. GREAT VESSELS The aortic root is normal in size. The ascending aorta is normal in size. The pulmonary artery is normal. The IVC is dilated. PERICARDIAL EFFUSION There is no pleural effusion. There is no pericardial effusion. <Conclusion> The left ventricle is normal size. There is mild to moderate concentric left ventricular hypertrophy. The systolic function is severely impaired.EF-20-25% There is mild to moderate aortic regurgitation. Mitral regurgitation is mild. The IVC is dilated.
== END 2018-12-24 17:09 | disposition home or self-care (01) | DRG 310 ==
LOC: ED 15:41 → ERH 17:27 → 2RNO 20:50
PROVIDERS: ADMIT Family Medicine; ATTEND Family Medicine
PROC: 4B02XTZ Measurement of Cardiac Defibrillator, External Approach (ICD-10-PCS; principal; 2018-12-24)
DX: I49.01 Ventricular fibrillation (principal); I47.2 Ventricular tachycardia; I48.0 Paroxysmal atrial fibrillation; I25.10 Atherosclerotic heart disease of native coronary artery without angina pectoris; I10 Essential (primary) hypertension; E11.9 Type 2 diabetes mellitus without complications; N40.0 Benign prostatic hyperplasia without lower urinary tract symptoms; S40.811A Abrasion of right upper arm, initial encounter; S40.812A Abrasion of left upper arm, initial encounter; S00.83XA Contusion of other part of head, initial encounter; S90.512A Abrasion, left ankle, initial encounter; S90.511A Abrasion, right ankle, initial encounter; I25.5 Ischemic cardiomyopathy; E78.5 Hyperlipidemia, unspecified; E78.00 Pure hypercholesterolemia, unspecified; E83.42 Hypomagnesemia; E87.6 Hypokalemia; F17.200 Nicotine dependence, unspecified, uncomplicated; W18.30XA Fall on same level, unspecified, initial encounter; I25.2 Old myocardial infarction; Z79.01 Long term (current) use of anticoagulants; Z95.810 Presence of automatic (implantable) cardiac defibrillator; Z95.5 Presence of coronary angioplasty implant and graft

== ENCOUNTER 2018-12-26 06:28 | Emergency (ER) | payer MEDICARE ==
[2018-12-26 06:29] VITALS: PULSE 60; BMI 24.3
[2018-12-26] MEDS ORDERED: Oxymetazoline 0.05% Nasal Spray (30 ml) NS STA (07:08)
[2018-12-26] MEDS ORDERED: Silver Nitrate Topical - Stick TOP ONE ×2 (07:10)
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
[2018-12-26 07:38] LABS: BASO # 0.02 K/mm3 (0.0-2.0); BASO % 0.5 % (0.0-3.0); EOS # 0.1 (0.0-0.7); EOS % 1.4 % (1.5-5.0); LYMPH # 1.2 (1.2-3.4); LYMPH % 29.5 % (22.0-35.0); MEAN CELL VOLUME 102.7 fl (80.0-105.0); MEAN CORPUSCULAR HEMOGLOBIN 34.3 pg (25.0-35.0); MEAN CORPUSCULAR HGB CONC 33.4 g/dl (31.0-37.0); MEAN PLATELET VOLUME 11.4 fl (7.0-11.0); MONO # 0.3 (0.1-0.6); MONO % 7.2 % (1.0-6.0); RBC 4.08 10^6/uL (3.5-6.1); RED CELL DISTRIBUTION WIDTH 14.7 % (11.5-14.5); WHITE BLOOD COUNT 4.1 10^3/uL (4.5-11.0)
[2018-12-26 07:41] LABS: INR 1.42; PARTIAL THROMBOPLASTIN TIME 36.5 Seconds (26.9-38.3)
[2018-12-26 08:04] LABS: ALB/GLOB RATIO 1.2 (1.1-1.8); ALBUMIN 4.3 g/dL (3.0-4.8); CALCIUM 9.6 mg/dL (8.4-10.5)
[2018-12-26 09:52] VITALS: BP 124/81; PULSE 60; RESP 18; TEMP 98; O2SAT 95
== END 2018-12-26 09:53 | disposition home or self-care (01) ==
LOC: ED 06:28
DX: R04.0 Epistaxis (principal); I10 Essential (primary) hypertension; E11.9 Type 2 diabetes mellitus without complications; I48.91 Unspecified atrial fibrillation; Z87.891 Personal history of nicotine dependence; Z79.01 Long term (current) use of anticoagulants

== ENCOUNTER 2018-12-27 12:06 | Observation (INO) | payer MEDICARE ==
[2018-12-27 12:06] VITALS: PULSE 60; BMI 24.3
[2018-12-27 12:09] VITALS: RESP 18
[2018-12-27] MEDS ORDERED: Silver Nitrate Topical - Stick TOP ONE (12:15)
[2018-12-27] MEDS ORDERED: Oxymetazoline 0.05% Nasal Spray (30 ml) NS STA (12:15)
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
[2018-12-27] MEDS ORDERED: Tranexamic Acid 100 mg/ml TOP ONE (13:00)
[2018-12-27 13:35] LABS: BASO # 0.02 K/mm3 (0.0-2.0); BASO % 0.5 % (0.0-3.0); EOS # 0.1 (0.0-0.7); EOS % 1.4 % (1.5-5.0); HEMOGLOBIN 13.6 g/dL (14.0-18.0); LYMPH # 0.8 (1.2-3.4); LYMPH % 18.6 % (22.0-35.0); MEAN CORPUSCULAR HEMOGLOBIN 34.7 pg (25.0-35.0); MEAN PLATELET VOLUME 10.4 fl (7.0-11.0); MONO # 0.2 (0.1-0.6); MONO % 5.8 % (1.0-6.0); RBC 3.92 10^6/uL (3.5-6.1); RED CELL DISTRIBUTION WIDTH 14.7 % (11.5-14.5); WHITE BLOOD COUNT 4.1 10^3/uL (4.5-11.0)
[2018-12-27 13:41] LABS: INR 1.38; PARTIAL THROMBOPLASTIN TIME 34.9 Seconds (26.9-38.3); PROTHROMBIN TIME 15.6 SECONDS (9.4-12.5)
[2018-12-27 13:46] LABS: ALB/GLOB RATIO 1.2 (1.1-1.8); ALBUMIN 4.5 g/dL (3.0-4.8); CALCIUM 9.6 mg/dL (8.4-10.5)
[2018-12-27] MEDS ORDERED: Digoxin 250 mcg (0.25 mg) Tab PO SCH (14:00)
[2018-12-27] MEDS ORDERED: Amoxicillin-Clav 875-125 mg Tab PO STA (15:10)
[2018-12-27] MEDS: Potassium Chloride 20 mEq ER Tab PO SCH (19:02)
--- NOTE | 2018-12-28 03:11 | CON ---
DATE: 12/27/2018 CONSULT SERVICE: Cardiology. REASON FOR CONSULTATION: Cardiac evaluation, admitted with epistaxis, nose bleed; history of ischemic cardiomyopathy status post automatic implantable cardioverter defibrillator, history of coronary artery disease status post myocardial infarction in the past, history of recent defibrillator went off and syncope on last admission. BRIEF CLINICAL HISTORY: This is a 68-year-old male with past medical history significant for coronary artery disease status post HI, status post stent; recently patient was defibrillated in 2018. Initially patient was keeping on refusing. Recently patient was admitted on 12/23/2018 after defibrillator went off and fired and patient fell down while he was washing the dishes in the sink. Later on, the remote telemetry monitoring from the defibrillator mentioned the patient went into ventricular fibrillation and shock was appropriately delivered. So [employer] called and interrogated, found to be true ventricular fibrillation and shock delivered and the first initial antitachycardia cardiac device pacing, but it did not break the ventricular tachycardia so the defibrillator went off and shock delivered and patient converted to normal sinus. Later on, patient discharged on amiodarone and patient was already on Coumadin. The patient yesterday came in with a nose bleed. Though INR was therapeutic this morning again the patient had recurrent nose bleeds, so he was admitted here. He denies any chest pain, shortness of breath or any palpitation. PAST MEDICAL HISTORY: Significant for coronary artery disease, history of HI, history of hypertension, hyperlipidemia, history of ischemic cardiomyopathy status post multiple stent, history of recent defibrillator placed in 07/2018, found to be recently in Afib since 07/2018. PREVIOUS CARDIAC WORKUP: As follows; patient had an echocardiography on last admission here to the [facility] when the patient was admitted when the defibrillator went off. Echo shows ejection fraction at 20% to 25%, [id number] aortic regurgitation, mild mitral regurgitation, IVC dilated, [id number] tricuspid regurgitation, RV systolic pressure 28, dated 12/24/2018. Last MUGA scan on 05/27/2018 shows ejection fraction 32%. History of inferior wall HI, history of PTCA in the past. SOCIAL HISTORY: Denies any smoking, denies any history of alcohol abuse. The patient used to smoke and drink, but now quit. ALLERGIES: NO KNOWN DRUG ALLERGY. CURRENT MEDICATION: Patient is taking at home; Coumadin 1 mg daily, vitamin E, vitamin B complex, simvastatin, K-Dur, lisinopril, Lasix, digoxin, Coreg, amiodarone and Xanax. REVIEW OF SYSTEMS: As per HPI. PHYSICAL EXAMINATION: As follows; VITAL SIGNS: Height of the patient 6 feet 2 inches, weight of the patient 190 pounds, body mass index 24.4 kg/m2. Rest of the vitals, temperature afebrile, heart rate 60, blood pressure 142/87. HEENT: PERRLA, extraocular muscles intact. NECK: Supple, no carotid bruit or thyromegaly. CHEST: Clear to auscultation. HEART: S1, S2 regular. ABDOMEN: Soft. EXTREMITIES: Clubbing and cyanosis negative. LABORATORY DATA: Blood workup as follows; WBC 4.2, hemoglobin 13.6, hematocrit 40, platelet count 110. Chemistry shows sodium 141, potassium 3.5, chloride 99, carbon dioxide 32, anion gap of 13, BUN 21, creatinine 1.5. INR 1.38. IMPRESSION: A 68-year-old male with past medical history significant for coronary disease status post cardiomyopathy, ischemic; history of atrial fibrillation, history of ventricular tachycardia, ventricular fibrillation last week, status post shock delivered appropriately, admitted this time with a nose bleed though INR is subtherapeutic. RECOMMENDATION: To hold Coumadin now. Repeat the blood work in the morning. Patient has been seen by ENT and has a nasal packing. We will follow with you. Resume previous medications including Coreg, amiodarone, Lasix, and digoxin. We will check the digoxin level as well. We will repeat the INR/PT and if it is high, today it is normal, then we will if needed , but otherwise we will follow with you. We will repeat EKG in the morning. Thank you Dr. Jordan for providing us the opportunity in taking care of the patient, Kaz. Say Meredith MD
--- NOTE | 2018-12-28 07:50 | CP.PCM.PN ---
Subjective - Date & Time of Evaluation Date of Evaluation: 12/28/18 Time of Evaluation: 06:35 - Subjective Subjective: Awake, alert, right nose bleeding Reason for consultation and follow up: Cardiac evaluation and follow up, history of ischemic cardiomyopathy, post AICD, Histroy of Atrial fibrillation, on Coumadin. Admitted for nose bleeding/epistaxis Seen and examined by me and Dr. Meredith Objective - Vital Signs/Intake and Output Vital Signs (last 24 hours): Temp Pulse Resp BP Pulse Ox 97.4 F L 60 18 144/82 96 12/28/18 06:00 12/28/18 06:00 12/28/18 06:00 12/28/18 06:00 12/28/18 06:00 Intake and Output: 12/28/18 12/28/18 06:59 18:59 Intake Total 740 Balance 740 - Medications Medications: Current Medications Alprazolam (Xanax) 0.5 mg PO BID PRN; Protocol PRN Reason: Anxiety Last Admin: 12/27/18 23:19 Dose: 0.5 mg Amiodarone HCl (Cordarone) 200 mg PO BID [facility] Last Admin: 12/27/18 19:02 Dose: 200 mg Atorvastatin Calcium (Lipitor) 20 mg PO Q48H [facility] Last Admin: 12/27/18 19:03 Dose: Not Given Carvedilol (Coreg) 25 mg PO BID [facility] Last Admin: 12/27/18 19:02 Dose: 25 mg Digoxin (Lanoxin) 0.25 mg PO Q72H [facility] Last Admin: 12/27/18 19:02 Dose: Not Given Furosemide (Lasix) 40 mg PO BID [facility] Last Admin: 12/27/18 19:02 Dose: 40 mg Lisinopril (Zestril) 30 mg PO DAILY [facility] Potassium Chloride (K-Dur 20 Meq Er Tab) 20 meq PO BID [facility] Last Admin: 12/27/18 19:02 Dose: 20 meq Vitamin B Complex/Vit C/Folic Acid (Nephro-Miguel) 1 tab PO 0800 [facility] Vitamin E (Vitamin E 400 Units Cap) 400 intlu PO DAILY [facility] - Labs Labs: 12/27/18 13:17 12/27/18 13:17 PT 15.6 SECONDS (9.4-12.5) H 12/27/18 13:17 INR 1.38 12/27/18 13:17 APTT 34.9 Seconds (26.9-38.3) 12/27/18 13:17 - Constitutional Appears: Non-toxic, No Acute Distress - Head Exam Head Exam: NORMAL INSPECTION, NORMOCEPHALIC - Eye Exam Eye Exam: Normal appearance Pupil Exam: NORMAL ACCOMODATION - ENT Exam Additional comments: left nose bleeding/epistaxis with nasal packing - Neck Exam Neck Exam: Full ROM, Normal Inspection - Respiratory Exam Respiratory Exam: Decreased Breath Sounds, Clear to Ausculation Bilateral, NORMAL BREATHING PATTERN - Cardiovascular Exam Cardiovascular Exam: +S1, +S2 Additional comments: AICD - GI/Abdominal Exam GI & Abdominal Exam: Soft, Normal Bowel Sounds - Extremities Exam Extremities Exam: Full ROM, Normal Capillary Refill - Neurological Exam Neurological Exam: Alert, Awake, Oriented x3 - Psychiatric Exam Psychiatric exam: Normal Affect, Normal Mood - Skin Skin Exam: Dry, Normal Color, Warm Assessment and Plan - Assessment and Plan (Free Text) Assessment: A 68 year old male who came in to the ER due to epistaxis. History of ischemic cardiomyopathy, post AICD (07/2018) , Atrial fibrillation, on Coumadin,coronary artery disease post myocardial infarction, post multiple stents, hypertension,hyperlipidemia. AICD went off last 12/23/2018. AICD interrogated and showed ventricular fibrillation/tachycardia and appropriately delivered shock. He was put on Amiodarone and Coumadin for atrial fibrillation. Admitted for nose bleeding/epistaxis. On Coumadin and INR is subtherapeutic. Left Nasal packing intact but still with epistaxis. Denies chest pain or shortness of breath. EENT on consult, possible nasal cauterization. Plan: Still has epistaxis inspite of nasal packing from left nostril EENT on consult, possible nasal cauterization. Denies chest pain or shortness of breath Held Coumadin Heart rate and blood pressure stable On Amiodarone 200 mg BID,Lipitor 20 mg daily, Coreg 25 mg BID, Lasix 40 mg BID, Digoxin 0.25 mg daily Kdur 20 meq daily Continue current treatment Continue current medications Will follow up Plan and treatment discussed with Dr. Meredith
[2018-12-28] MEDS ORDERED: Potassium Chloride 20 mEq ER Tab PO STA (08:04)
[2018-12-28 08:06] LABS: BASO # 0.01 K/mm3 (0.0-2.0); BASO % 0.3 % (0.0-3.0); EOS % 0.9 % (1.5-5.0); HEMOGLOBIN 12.5 g/dL (14.0-18.0); LYMPH # 0.9 (1.2-3.4); LYMPH % 25.3 % (22.0-35.0); MEAN CELL VOLUME 102.2 fl (80.0-105.0); MEAN CORPUSCULAR HEMOGLOBIN 33.8 pg (25.0-35.0); MEAN CORPUSCULAR HGB CONC 33.1 g/dl (31.0-37.0); MEAN PLATELET VOLUME 10.8 fl (7.0-11.0); MONO # 0.2 (0.1-0.6); MONO % 6.8 % (1.0-6.0); RBC 3.7 10^6/uL (3.5-6.1); RED CELL DISTRIBUTION WIDTH 14.6 % (11.5-14.5); WHITE BLOOD COUNT 3.5 10^3/uL (4.5-11.0)
[2018-12-28 08:11] LABS: INR 1.48; PROTHROMBIN TIME 16.7 SECONDS (9.4-12.5)
[2018-12-28 08:17] LABS: ALB/GLOB RATIO 1.3 (1.1-1.8); ALBUMIN 4.1 g/dL (3.0-4.8); ALT/SGPT 27 U/L (7-56); AST/SGOT 33 U/L (17-59); BLOOD UREA NITROGEN 18 mg/dL (7-21); CALCIUM 9.4 mg/dL (8.4-10.5); GFR NON-AFRICAN AMERICAN 51
[2018-12-28] MEDS ORDERED: Enoxaparin 30 mg Syringe SC SCH (10:00)
--- NOTE | 2018-12-28 10:21 | PN ---
DATE: 12/28/2018 SUBJECTIVE: He is here with a left-sided posterior nosebleed. He has packed with a balloon all night long, he was up with bleeding. He is very uncomfortable. Awaiting for ear, nose and throat to come in cauterize. MEDICATIONS: He is on Cordarone, Coreg, potassium, Lanoxin, Lasix, Lipitor, Nephro-Miguel, vitamin E, Xanax and Zestril. I held the Coumadin, but he is having nosebleeds. He does have atrial fibrillation. PHYSICAL EXAMINATION: VITAL SIGNS: He has a 97.4 temperature, 60 pulse, 144/82 blood pressure, 18 respiratory rate, 96% O2 sat on room air. HEENT: Head is atraumatic and normocephalic. HEART: Regular rate. LUNGS: Decreased breath sounds. ABDOMEN: Soft. EXTREMITIES: No edema. His nose is uncomfortable with a pack of the balloon. LABORATORY DATA: He has a 3.5 white count, hemoglobin down to 12.5, hematocrit 37.8, platelets 108. He has a 1.4 INR, not on Coumadin. Chemistry; 140 sodium; potassium 3.3, I will replace the potassium. BUN 18, creatinine 1.4, GFR is 51, sugar is 130, calcium is 9.4, phosphorus 2.7, magnesium 1.5, total bili is 2.1, AST is 33, ALT is 27, alk phos is 171, total protein 7.3, albumin is 4.1. PLAN: I am start him on Lovenox, off the Coumadin. I do not want him to have more bleeding, but I do not want him to have an AFib issue. I will wait and see what ENT has to say today and hopefully could be cauterized and then discharged. He is on observation level of care right now. If he is here tomorrow, we will check his lab tomorrow. If ENT comes in and cauterize , I will discharge him later today. Christiano Jordan DO [facility] HOSPITALBrandi
--- NOTE | 2018-12-28 10:38 | CARD ---
APPROVED REPORT Date of service: 12/28/2018 EKG Measurement Heart [id number] <Conclusion> Electronic atrial pacemaker PVC Left ventricular hypertrophy with repolarization abnormality Inferior infarct, age undetermined Anterior infarct, age undetermined Abnormal ECG
[2018-12-28] MEDS: Multivitamin Vitamin B Complex (Nephro-Vite) Tab PO SCH (11:24)
[2018-12-28] MEDS: Potassium Chloride 20 mEq ER Tab PO SCH ×2 (11:25→18:16)
[2018-12-28] MEDS: Magnesium Oxide 400 mg Tab UD PO SCH (18:16)
[2018-12-28 22:21] VITALS: O2SAT 97
--- NOTE | 2018-12-28 22:49 | CON ---
DATE: 12/28/2018 REQUESTING PHYSICIAN: Christiano Jordan DO, primary medical doctor. REASON FOR CONSULTATION: Acute epistaxis. INDICATION FOR SURGERY: This gentleman seen on room 577. He was admitted through the ER after acute nasal bleed at home. The patient states the bleeding was so severe that it came through his eye, made him difficult to see as he called 911, very nervous and anxious over the event. The patient was then admitted to [place] ER with noted hypertension and has been on blood thinners secondary to pacemaker that was placed. The patient has intermittent bleed since that time but nothing severe during the ER visit and then same day observation, a rhino rocket was then placed into nasal vestibule and blown to a pressure filled size. There was no active bleeding at that time. His H&H was 13.6 on admission and is now 12.5 and 37.8 and will be continue to observe. The patient is now seen after ER evaluation on room 577, occasionally splitting up little blood, no blood actively bleeding through oropharynx. The anterior aspect of the rhino rocket is noted to be dry. The patient anxious based on history. The patient has explained, will be observed 48 to 72 hours for hemostasis. The patient's blood thinners have been stopped as per Cardiology and primary medical doctor. The patient will be continued to be observed and packing removal either in hospital or as an outpatient in the office. The patient concerned about going home. The patient lives by himself, acute epistaxis with nasal posterior packing and no active bleeding at the time of exam. The patient will continue to be followed. Tavon Phan DO [facility]
[2018-12-29 07:31] VITALS: PULSE 61; TEMP 97.8
[2018-12-29 07:47] LABS: HEMOGLOBIN 12.1 g/dL (14.0-18.0); INR 1.35; MEAN CELL VOLUME 101.9 fl (80.0-105.0); MEAN CORPUSCULAR HEMOGLOBIN 33.5 pg (25.0-35.0); MEAN CORPUSCULAR HGB CONC 32.9 g/dl (31.0-37.0); MEAN PLATELET VOLUME 10.5 fl (7.0-11.0); PROTHROMBIN TIME 15.3 SECONDS (9.4-12.5); RBC 3.61 10^6/uL (3.5-6.1); RED CELL DISTRIBUTION WIDTH 14.5 % (11.5-14.5); WHITE BLOOD COUNT 3.7 10^3/uL (4.5-11.0)
[2018-12-29 07:56] LABS: ALB/GLOB RATIO 1.3 (1.1-1.8); ALBUMIN 3.9 g/dL (3.0-4.8); ALT/SGPT 27 U/L (7-56); AST/SGOT 30 U/L (17-59); BLOOD UREA NITROGEN 16 mg/dL (7-21); CALCIUM 9.2 mg/dL (8.4-10.5); GFR NON-AFRICAN AMERICAN 55
--- NOTE | 2018-12-29 07:57 | CP.PCM.PN ---
Subjective - Date & Time of Evaluation Date of Evaluation: 12/29/18 Time of Evaluation: 06:45 - Subjective Subjective: Lying in bed, Awake, alert, minimal nose bleeding Reason for consultation and follow up: Cardiac evaluation and follow up, history of ischemic cardiomyopathy, post AICD, Histroy of Atrial fibrillation, on Coumadin. Admitted for nose bleeding/epistaxis Seen and examined by me and Dr. Meredith Objective - Vital Signs/Intake and Output Vital Signs (last 24 hours): Temp Pulse Resp BP Pulse Ox 97.8 F 61 18 131/75 97 12/29/18 06:00 12/29/18 06:00 12/29/18 06:00 12/29/18 06:00 12/29/18 06:00 Intake and Output: 12/29/18 12/29/18 06:59 18:59 Intake Total 600 Balance 600 - Medications Medications: Current Medications Alprazolam (Xanax) 0.5 mg PO BID PRN; Protocol PRN Reason: Anxiety Last Admin: 12/28/18 23:23 Dose: 0.5 mg Amiodarone HCl (Cordarone) 200 mg PO BID [facility] Last Admin: 12/28/18 18:18 Dose: 200 mg Atorvastatin Calcium (Lipitor) 20 mg PO Q48H [facility] Last Admin: 12/27/18 19:03 Dose: Not Given Carvedilol (Coreg) 25 mg PO BID [facility] Last Admin: 12/28/18 18:17 Dose: 25 mg Digoxin (Lanoxin) 0.25 mg PO Q72H [facility] Last Admin: 12/27/18 19:02 Dose: Not Given Enoxaparin Sodium (Lovenox) 30 mg SC DAILY [facility]; Protocol Last Admin: 12/28/18 11:38 Dose: Not Given Furosemide (Lasix) 40 mg PO BID [facility] Last Admin: 12/28/18 18:17 Dose: 40 mg Lisinopril (Zestril) 30 mg PO DAILY [facility] Last Admin: 12/28/18 11:26 Dose: 30 mg Magnesium Oxide (Mag-Ox) 400 mg PO BID [facility] Last Admin: 12/28/18 18:16 Dose: 400 mg Potassium Chloride (K-Dur 20 Meq Er Tab) 20 meq PO BID [facility] Last Admin: 12/28/18 18:16 Dose: 20 meq Vitamin B Complex/Vit C/Folic Acid (Nephro-Miguel) 1 tab PO 0800 [facility] Last Admin: 12/28/18 11:24 Dose: 1 tab Vitamin E (Vitamin E 400 Units Cap) 400 intlu PO DAILY [facility] Last Admin: 12/28/18 11:24 Dose: 400 intlu - Labs Labs: 12/29/18 07:20 12/28/18 07:45 PT 15.3 SECONDS (9.4-12.5) H 12/29/18 07:20 INR 1.35 12/29/18 07:20 APTT 34.9 Seconds (26.9-38.3) 12/27/18 13:17 - Constitutional Appears: Non-toxic, No Acute Distress - Head Exam Head Exam: NORMAL INSPECTION, NORMOCEPHALIC - Eye Exam Eye Exam: Normal appearance Pupil Exam: NORMAL ACCOMODATION - ENT Exam ENT Exam: Mucous Membranes Moist, Normal Exam Additional comments: minimal nose bleeding/ nasal packing - Respiratory Exam Respiratory Exam: Decreased Breath Sounds, Clear to Ausculation Bilateral, NORMAL BREATHING PATTERN - Cardiovascular Exam Cardiovascular Exam: +S1, +S2 Additional comments: AICD - GI/Abdominal Exam GI & Abdominal Exam: Soft, Normal Bowel Sounds - Extremities Exam Extremities Exam: Full ROM, Normal Capillary Refill - Neurological Exam Neurological Exam: Alert, Awake, Oriented x3 - Psychiatric Exam Psychiatric exam: Normal Affect, Normal Mood - Skin Skin Exam: Dry, Normal Color, Warm Assessment and Plan - Assessment and Plan (Free Text) Assessment: A 68 year old male who came in to the ER due to epistaxis. History of ischemic cardiomyopathy, post AICD (07/2018) , Atrial fibrillation, on Coumadin,coronary artery disease post myocardial infarction, post multiple stents, hypertension,hyperlipidemia. AICD went off last 12/23/2018. AICD interrogated and showed ventricular fibrillation/tachycardia and appropriately delivered shock. He was put on Amiodarone and Coumadin for atrial fibrillation. Admitted for nose bleeding/epistaxis. On Coumadin, Coumadin held. Denies chest pain or shortness of breath. EENT on consult. Left Nasal packing intact minimal nose bleeding today. INR 1.35 today. Plan: No distress Minimal nose bleeding compared to yesterday Nasal packing intact EENT on consult Denies chest pain or shortness of breath Held Coumadin, INR 1.35 today. Heart rate and blood pressure stable On Amiodarone 200 mg BID,Lipitor 20 mg daily, Coreg 25 mg BID, Lasix 40 mg BID, Digoxin 0.25 mg daily Kdur 20 meq daily Continue current treatment Continue current medications Will follow up Plan and treatment discussed with Dr. Meredith
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
[2018-12-29] MEDS ORDERED: Potassium Chloride 20 mEq ER Tab PO ONE ×2 (09:15→12:00)
[2018-12-29] MEDS: Potassium Chloride 20 mEq ER Tab PO SCH (10:12)
[2018-12-29] MEDS: Magnesium Oxide 400 mg Tab UD PO SCH (10:12)
[2018-12-29 10:13] VITALS: BP 138/74
[2018-12-29] MEDS: Multivitamin Vitamin B Complex (Nephro-Vite) Tab PO SCH (10:13)
--- NOTE | 2018-12-30 03:43 | DS ---
HOSPITAL COURSE: He is now resting comfortably. No bleeding in the past 24 hours. He had a packing into his left nostril. He is going to be discharged today and follow up with the Ear, Nose, and Throat tomorrow and then the next day with me. He is refusing to take his Coumadin, does not want his Lovenox. He is scared about bleeding. I discussed his atrial fibrillation. He will restart the Coumadin he says in a day after he gets the packing out of his nose and it gets fixed and it not bleeding anymore. I tried to talk to him about the consequence of not being anticoagulated and he was too scared about the bleeding. Hopefully in the next 24 hours we will get him back on Coumadin. He will be discharged today. PHYSICAL EXAMINATION VITAL SIGNS: He has a 97.8 temperature, 61 pulse, 131/77 blood pressure, 18 respiratory rate, and 97% O2 saturation. HEENT: His head is atraumatic and normocephalic. He has got a balloon packing in the left nostril. HEART: Regular rate. LUNGS: Decreased breath sounds. ABDOMEN: Soft. EXTREMITIES: No edema. LABORATORY DATA: He has 3.7 white count, 12.1 hemoglobin, 36.8 hematocrit with 103 platelets. INR is 1.35. He has a 139 sodium; potassium is 3.3, I will give him potassium today; BUN 16; creatinine 1.3; GFR is 55 and sugar is 98. Calcium is 9.2, total bili is 1.6, AST is 30, ALT is 27, and alk phos 158. ASSESSMENT AND PLAN: He was being seen by Ear, Nose, and Throat. He will come to the office to see Ear, Nose, and Throat tomorrow. Also seen by Cardiology. Hopefully he will do well. We could cauterize him possibly in the office tomorrow, and he will not bleed anymore. He had an epistaxis. Christiano Jordan DO
== END 2018-12-29 14:22 | disposition home or self-care (01) ==
LOC: ED 12:06 → ERH 15:09 → 5RSO 17:25
PROVIDERS: ADMIT Family Medicine; ATTEND Family Medicine
DX: R04.0 Epistaxis (principal); E11.9 Type 2 diabetes mellitus without complications; E78.5 Hyperlipidemia, unspecified; F17.200 Nicotine dependence, unspecified, uncomplicated; F43.10 Post-traumatic stress disorder, unspecified; I10 Essential (primary) hypertension; I25.10 Atherosclerotic heart disease of native coronary artery without angina pectoris; I25.2 Old myocardial infarction; I25.5 Ischemic cardiomyopathy; I48.91 Unspecified atrial fibrillation; I49.01 Ventricular fibrillation; N40.0 Benign prostatic hyperplasia without lower urinary tract symptoms; Z79.01 Long term (current) use of anticoagulants; Z86.79 Personal history of other diseases of the circulatory system; Z95.5 Presence of coronary angioplasty implant and graft; Z95.810 Presence of automatic (implantable) cardiac defibrillator; I08.3 Combined rheumatic disorders of mitral, aortic and tricuspid valves
CPT/HCPCS: 36415; 80053; 83735; 84100; 84443; 85025; 85027; 85610; 85730; 93005; 99284; G0378

== ENCOUNTER 2019-02-16 09:04 | Outpatient (CLI) | payer MEDICARE | END 2019-02-16 09:05 | disposition home or self-care (01) | LOC: LAB 09:04 ==